=== PATIENT | female | born 1985 | race Caucasian/White ===

== ENCOUNTER → 2021-01-30 09:13 | Outpatient (CLI) | payer OTHER, MEDICAID, SELFPAY ==
[2021-01-30 13:01] LABS: Appearance Urine UA CLEAR; Bilirubin Urine UA NEGATIVE (NEGATIVE); Color Urine UA YELLOW; Glucose Urine UA TRACE g/dL (Negative); Ketones Urine UA NEGATIVE (NEGATIVE); Leukocyte Esterase Urine UA NEGATIVE (NEGATIVE); Nitrite Urine UA NEGATIVE (Negative); Occult Blood Urine UA NEGATIVE (Negative); Protein Urine UA NEGATIVE (Negative); Urobilinogen Urine UA 0.2 E.U./dL (0.2)
[2021-01-30 13:04] LABS: UR Morphine/Opiate cutoff 300 Negative (Negative); Ur Creatinine Normal (Normal); Ur Specific Gravity Normal (Normal); Urine Amphetamines Negative (Negative); Urine Barbiturates Negative (Negative); Urine Benzodiazepines Negative (Negative); Urine Cocaine Negative (Negative); Urine MDMA Negative (Negative); Urine Methadone Negative (Negative); Urine Methamphetamines Negative (Negative); Urine Oxycodone Negative (Negative); Urine Phencyclidine Negative (Negative); Urine Tetrahydrocannabinol Negative (Negative); Urine Tricyclic Antidepressant Negative (Negative); Urine pH Normal (Normal); pH Urine UA 6.5 (4.5-8.0)
[2021-01-31 08:30] LABS: Strep Grp B PCR NEG for Grp B Strep
== END ==
PROVIDERS: Visit Provider Family Medicine
DX: Z34.03 Encounter for supervision of normal first pregnancy, third trimester (principal); Z3A.36 36 weeks gestation of pregnancy
CPT/HCPCS: 80305; 81003; 87086; 87653

== ENCOUNTER → 2021-01-31 14:56 | Outpatient (CLI) | payer OTHER, MEDICAID, SELFPAY ==
--- NOTE | 2021-01-31 15:10 | DI.US.S_ITS ---
PROCEDURE: US OB >= 14 WEEKS FETUS INDICATIONS: LATE ANATOMY OUTSIDE/PRIOR DATING DATA: First dating scan (date and location): 01/31/2021 . Estimated date of delivery (VEDA) from first dating scan: 03/06/2021 . TECHNIQUE: Real-time scanning was performed of the fetus, with image documentation and biometric measurements. Endovaginal scanning: No COMPARISON: None. FINDINGS: General: A single living intrauterine gestation is present. Presentation: Breech. Placenta: Placental position is anterior , without previa. Amniotic fluid index: 12.4 cm, normal range is 5-24 cm. heart rate: 128 beats per minute. Maternal cervical canal: 2.7 cm long. Normal lower limit is 2.5 cm. biometrics: Biparietal diameter: 34 weeks 6 days Head circumference: 34 weeks 6 days Abdominal circumference: 36 weeks 6 days Femur length: 34 weeks 1 day Estimated gestational age from initial scan: not applicable. Composite gestational age from present scan: 35 weeks 1 day Estimated weight and percentile: 2750 g Measurement variability for biometric dating: +/- 7 days from 14 weeks to 15 weeks 6 days gestation, +/- 10 days from 16 weeks to 21 weeks 6 days gestation, +/- 2 weeks from 22 weeks to 27 weeks 6 days gestation, +/- 3 weeks for 28 weeks gestation or later. weight reference: 4500 g or EFW >90/95% is considered macrosomia or large for gestational age. EFW <10% is small for gestational age. EFW 5% or less is considered intra-uterine growth restriction. Limited anatomic survey secondary to advanced gestational age. No gross abnormality seen. IMPRESSION: 1. Single living IUP with composite age of 35 weeks 1 day corresponding to ultrasound VEDA of 03/06/2021. 2. Limited anatomic survey secondary to advanced gestational age. Dictated by: Arjun Davenport [facility] Interpreted: Evan Garzon MD on 01/31/2021 at 16:56 Transcribed by: KEYUR on 01/31/2021 at 16:59 Approved by: Oumar Garzon M.D. on 02/04/2021 at 9:38
== END ==
PROVIDERS: Referring Provider Family Medicine; Visit Provider Family Medicine
DX: Z34.03 Encounter for supervision of normal first pregnancy, third trimester (principal); Z3A.35 35 weeks gestation of pregnancy
CPT/HCPCS: 76811

== ENCOUNTER → 2021-02-08 11:48 | Outpatient (CLI) | payer OTHER, MEDICAID, SELFPAY ==
[2021-02-08 12:37] LABS: Add Manual Diff / Slide Review NO; Basophils Absolute Auto 0 /uL (0-100); Basophils Percent Auto 0.2 % (0-2); Eosinophils Absolute Auto 100 /uL (0-450); Eosinophils Percent Auto 1.2 % (2-4); Hematocrit 36.9 % (36-46); Hemoglobin 12.8 g/dL (12.0-16.0); Lymphocytes Absolute Auto 1400 /uL (1100-4500); Lymphocytes Percent Auto 15.6 % (25-40); Mean Corpuscular HGB Conc 34.6 % (30-36); Mean Corpuscular Hemoglobin 31.1 PG (26-34); Mean Corpuscular Volume 89.9 fL (80-100); Monocytes Absolute Auto 700 /uL (0-900); Monocytes Percent Auto 7.4 % (3-14); Neutrophils Absolute Auto 6800 /uL (1500-7000); Neutrophils Percent Auto 75.6 % (50-75); Platelet Count 141 X10^3/uL (150-400); Red Cell Distribution Width 12.6 % (11.6-14.8)
[2021-02-08 12:51] LABS: Hemoglobin A1C% w Est Avg Glu 4.7 % (4.0-6.0)
[2021-02-08 13:21] LABS: Glucose 99 mg/dL (70-100)
[2021-02-09 08:43] LABS: RPR Screen Non Reactive (Non Reactive)
[2021-02-09 10:09] LABS: Varicella IgG Antibody 981 index (Immune >165)
[2021-02-12 15:03] LABS: Hepatitis B Surface Antigen NEGATIVE s/c (NEGATIVE)
[2021-02-12 15:20] LABS: HIV 1 & 2 Ab/Ag 4th Gen Combo NEGATIVE (NEGATIVE); Hep C Virus Ab w/Reflex Quant REACTIVE s/c (NEGATIVE)
[2021-02-13 18:16] LABS: Rubella Antibody IgG 34.3 IU/mL (>15)
[2021-02-15 19:13] LABS: HCV Genotype 1a (.); HCV LOG 10 5.781 (.)
== END ==
PROVIDERS: Referring Provider Family Medicine; Visit Provider Family Medicine
DX: Z34.03 Encounter for supervision of normal first pregnancy, third trimester (principal)
CPT/HCPCS: 36415; 80055; 82947; 83036; 86787; 86803; 86850; 86900; 86901; 87389; 87522

== ENCOUNTER → 2021-02-15 11:25 | Outpatient (CLI) | payer OTHER, MEDICAID, SELFPAY | PROVIDERS: PCP Family Medicine; Referring Provider Family Medicine; Visit Provider Family Medicine | DX: Z34.90 Encounter for supervision of normal pregnancy, unspecified, unspecified trimester (principal) | CPT/HCPCS: 36415; 86850; 86900; 86901 ==

== ENCOUNTER 2021-03-01 10:29 | Outpatient (CLI) | payer OTHER, MEDICAID, SELFPAY | END 2021-03-01 11:05 | disposition home or self-care (01) | LOC: LABOR 11:15 → OB 03-06 07:15 | PROVIDERS: PCP Family Medicine; Referring Provider Family Medicine; Visit Provider Family Medicine | DX: O48.0 Post-term pregnancy (principal); Z3A.41 41 weeks gestation of pregnancy | CPT/HCPCS: 59025; 76815; G0378; G0379 ==

== ENCOUNTER 2021-03-06 02:54 | Outpatient (CLI) | payer OTHER, MEDICAID, SELFPAY ==
[2021-03-06] MEDS: hydrOXYzine 50 MG/ML INJ 25 MG IM (04:08)
[2021-03-06] MEDS: MORPHINE 10 MG/ML INJ IM (04:09)
== END 2021-03-06 04:18 | disposition home or self-care (01) ==
LOC: LABOR 03:03 → OB 11:32
PROVIDERS: PCP Family Medicine; Referring Provider Family Medicine; Visit Provider Family Medicine
DX: O48.0 Post-term pregnancy (principal); Z3A.41 41 weeks gestation of pregnancy
CPT/HCPCS: 59025; 96372; G0378; G0379; J2270; J3410

== ENCOUNTER 2021-03-06 07:24 | Inpatient (IN) | payer OTHER, MEDICAID, SELFPAY ==
[2021-03-06 09:02] LABS: Add Manual Diff / Slide Review NO; Basophils Absolute Auto 0 /uL (0-100); Basophils Percent Auto 0.3 % (0-2); Eosinophils Absolute Auto 0 /uL (0-450); Eosinophils Percent Auto 0.1 % (2-4); Hematocrit 39.1 % (36-46); Hemoglobin 13.2 g/dL (12.0-16.0); Lymphocytes Absolute Auto 1400 /uL (1100-4500); Lymphocytes Percent Auto 11.4 % (25-40); Mean Corpuscular HGB Conc 33.7 % (30-36); Mean Corpuscular Volume 88.8 fL (80-100); Monocytes Absolute Auto 700 /uL (0-900); Monocytes Percent Auto 5.3 % (3-14); Neutrophils Absolute Auto 10500 /uL (1500-7000); Neutrophils Percent Auto 82.9 % (50-75); Platelet Count 143 X10^3/uL (150-400); Red Blood Cell Count 4.41 X10^6/uL (4.0-5.2); Red Cell Distribution Width 12.7 % (11.6-14.8); White Blood Cell Count 12.6 X10^3/uL (4.5-11.0)
--- NOTE | 2021-03-06 09:27 | P.HPOB_ITS ---
OB HPI Date/Time Date of admission: 03/06/21 Date Patient Seen: 03/06/21 Time Patient Seen: 08:10 History of Present Condition Chief complaint: OBS : 3 Para: 0 Estimated Date of Delivery: 02/27/21 Estimated Gestational Age (weeks): 41w0d Narrative: Sylvia Flaherty is a 35 year old at 41w0d who presented with regular contractions. Pt reports contractions started around 2am, increasing in frequency and intensity since then. Mild vaginal bleeding, no LOF. She is feeling her baby move regularly. The pts was complicated by very limited care. She was unaware she was until the 3rd trimester. The pt does have a hx of manic depression and was on Abilify and Wellbutrin, which were stopped when she found out she was . Her mood has been stable since then. She was smo jose alfredo cigarettes until October, and has not smoked since then. The pt did test positive for Hepatitis C with an elevated quant. She was unaware she was Hepatitis C positive prior to her . This was discovered too late for her to see [facility] or any specialist regarding it. The pt does have a hx of IV drug use, but has been sober for 9 years, and had a negative urine tox at her intake appointment. The pt was found to be breech at her 37wk appt, and declined version. She was transverse at her 39wk appt. The day of her scheduled , on 03/01, she was found to be vertex and has remained as such since then. History of Present care: limited care, initiated at week # (30) and pounds weight gain (6) Dating criteria: based on 3rd trimester US only Ultrasounds: other (normal 3rd trimester anatomy ultrasound) Obstetrical complications: none Preadmission Labs Blood type: A (-) negative -: Antibody screen: negative, GBS status: negative, HBsAG: negative, HIV: ne gative and RPR/VDLR: negative -: Rubella: immune and Varicella: immune HCT: 36.9 HCAB: reactive PAP: Abnormal (LGSIL - needs repeat at 6wk appt) Urine: Negative Narrative: A1C 4.7 Prior (ies) History: Two elective abortions at unknown dates Evaluation Evaluation Baseline heart rate: 120 Variability: Moderate (11-25) monitor accelerations: Present Monitor Decelerations: Absent Contraction Frequency (minutes): 3 Uterine Contraction Intensity: Strong/Firm Status: Category l Cervical dilation (cm): 4 Cervical effacement (%): 95 station: 0 PFSH Medical History (Updated 02/22/21 @ 15:59 by Sindy Mohan MD) Bipolar 1 disorder H/O 2 abortions Hepatitis C, acute History of being hospitalized (~2010) History of manic depressive disorder LGSIL (low grade squamous intraepithelial dysplasia) MRSA (methicillin resistant staph aureus) culture positive (~2010) Obesity Ovarian cyst (~2001) Surgical History (Updated 01/30/21 @ 16:52 by Loretta Mace, [place]) History of dilation and curettage History of dilation and curettage History of ovarian cystectomy (~2001) S/P laparoscopic cholecystectomy (~2003) Status post surgery (~2010) [place] teeth extracted (~2007) Family History (Updated 01/30/21 @ 17:50 by Loretta Mace RN) Mother Diabetes mellitus Hypertension Altered cardiac tissue perfusion Grandmother Cancer Colon cancer Family/Other Cancer Breast cancer Father Depression Hyperlipidemia Bipolar disorder with severe nik Grandfather Myocardial infarction Grandmother Depression Suicide Bipolar disorder with severe nik Social History marital status: unmarried,living together (Wedding planned for January 2022) number of children: 0 household members: significant other occupational status: employed ([employer]) Smoking Status: Former smoker (Recent tobacco cessation) quit status: quit date established (Quit 10/2020) second hand exposure: No alcohol intake: former (pre- : 1/week) substance use type: former substance user (Stopped 9 years ago) and heroin Meds Home Medications and Allergies Home Medications Medication Instructions Recorded Confirmed Type aripiprazole 15 mg tablet (Abilify) 15 mg PO DAILY 01/30/21 01/30/21 History prenat.vits,darren,[id number] 1 tab PO DAILY 01/30/21 01/30/21 History Allergies Allergy/AdvReac Type Severity Reaction Status Date / Time No Known Drug Allergies Allergy Verified 03/06/21 03:58 Exam Const General: cooperative, healthy appearing and comfortable Orientation: alert, awake and oriented x3 Resp Effort & Inspection: normal respiratory effort Auscultation: clear to auscultation bilaterally Cardio Rate: regular rate Rhythm: regular rhythm Heart Sounds: S1 normal, S2 normal and no murmurs GI Inspection: non-distended Palpation: soft and No tender Other: gravid Presentation: vertex Extrem General: no clubbing, cyanosis or edema Objective Labs Result Diagrams: 03/06/21 08:10 Labs: Laboratory Results - last 24 hr 03/06/21 08:10 WBC 12.6 H RBC 4.41 Hgb 13.2 Hct 39.1 MCV 88.8 MCH 30.0 MCHC 33.7 RDW 12.7 Plt Count 143 L Neut % (Auto) 82.9 H Lymph % (Auto) 11.4 L [place] % (Auto) 5.3 Eos % (Auto) 0.1 L Baso % (Auto) 0.3 Neut # (Auto) 18942 H Lymph # (Auto) 1400 [place] # (Auto) 700 Eos # (Auto) 0 Baso # (Auto) 0 Assessment and Plan Assessment and Plan Assessment and Plan narrative: 35yo at 41w0d based on 3rd trimester ultrasound here in active labor. GBS negative, Rh negative (received Rhogam 02/15/21). complicated by limited OB care, Hepatitis C positive with elevated quant, manic depression now off medications but previously on Abilify and Wellbutrin, and tobacco use - no longer using. - Expectant management, anticipate - Minimize risk of maternal- blood transmission, avoid scalp electrode, early AROM, etc - FHT reassuring - GBS negative, no prophylaxis indicated - Epidural for pain control
[2021-03-06 10:00] LABS: COVID19 - ADMIT (NP swab/PCR) Negative (Negative)
[2021-03-06] MEDS: LACTATED RINGERS 1,000 ML 100 ML IV ×2 (10:00→10:53)
[2021-03-06] MEDS: OXYTOCIN PREMIX 30 UNIT/500 ML PLAST..BAG IV (12:51)
--- NOTE | 2021-03-06 13:51 | PM.OBPRVD ---
Labor & Delivery Delivery date: 03/06/21 Intrapartal Events: None Cervical ripening method: none Induction method: none Delivery monitor: external FHT Route of delivery: Episiotomy description: None L&D Laceration Description: Perineal - 1st Degree and Labial Delivery repair: chromic Estimated blood loss (mL): 100 Anesthesia Type: Epidural Complications: None Narrative: PROCEDURE: at 41w0d presented in active labor and was admitted to Labor and Delivery. The patient progressed through the 1st stage over 6.5 hours. Pain was controlled with an epidural. The patient progressed through the 2nd stage over 2.5 hours and delivered a viable female with APGARs 9/9 at 12:57 via without complications. The cord was cut and clamped after it stopped pulsating. With active management of the 3rd stage of labor, and gentle cord traction, the umbilical cord avulsed. The placenta was then manually extracted, which was located near to the cervical os and had already detached. The perineum and vagina were inspected with 1st degree labial laceration and right labial laceration repaired with 3-O Chromic. Left labial laceration was hemostatic and not repaired. PREPROCEDURE DIAGNOSIS: Intrauterine at 41w0d GBS negative RH negative Acute hepatitis C Tobacco use during Manic depression Limited care POSTPROCEDURE DIAGNOSIS: Intrauterine at 41w0d, delivered Same as preprocedure Windsor Baby 1: gender: Female Presentation: vertex Position: Left Occiput Anterior Placenta delivery description: Manual Removal Cord Vessel Description: 3 Vessels score (1 min): 9 score (5 min): 9 weight: 7 lb 7.261 oz Plan for aftercare: Routine care (send cord blood for Rh status)
[2021-03-06 14:35] VITALS: BP 120/56
[2021-03-06] MEDS: ACETAMINOPHEN 325 MG TABLET 650 MG PO (20:15)
[2021-03-06] MEDS: IBUPROFEN 600 MG TABLET PO (20:16)
[2021-03-07] MEDS: ACETAMINOPHEN 325 MG TABLET 650 MG PO (03:51)
[2021-03-07] MEDS: IBUPROFEN 600 MG TABLET PO ×2 (03:51→10:17)
[2021-03-07] MEDS: LANOLIN OINT 7 GM 1 APPLIC TOP (03:52)
--- NOTE | 2021-03-07 08:12 | P.DS_ITS ---
Discharge Providers Provider Date of admission: 03/06/21 07:24 Discharge Date: 03/07/21 Primary care physician: Sindy Mohan MD Consults: 03/07/21 13:52 Consult to Stenciler Routine Comment: Discharge provider: Barbara Hu DO Summary Hospital Course Date Patient Seen: 03/07/21 Time Patient Seen: 07:45 Diagnoses: Intrauterine at 41w0d GBS negative RH negative Acute hepatitis C Tobacco use during Manic depression Limited care Hospital Course: Patient is a 35-year-old G3 now P1 after uncomplicated spontaneous vaginal delivery at 41 weeks. She arrived in active labor and went on to recei ve an epidural. Labor progressed well and she delivered a vigorous female infant. First-degree lacerations were repaired. course has been uncomplicated. Patient is ambulating, voiding and passing flatus. Tolerating a diet. Vaginal bleeding is heavier than a period but still well controlled. Pain controlled with ibuprofen and Tylenol. Breast-feeding going well without issues in the . Advised patient to call for fevers, severe pain or bleeding through more than a pad an hour. She will follow-up in clinic in 6 weeks. Peripartum Data Infant Delivery Method: Natural Vaginal complications: none [place] 1: Gender: Female Disposition of : home Status at Discharge Cognitive/behavioral status at discharge: at baseline, oriented Functional status at discharge: independent ambulation Overall status at discharge: patient is progressing back to baseline Time Spent with Patient Time attestation: Total time spent providing and/or coordinating discharge services: [address] [place] [address] Objective Labs Result Diagrams: 03/06/21 08:10 Labs: Laboratory Results - last 24 hr 03/06/21 03/06/21 03/06/21 08:10 08:10 08:10 WBC 12.6 H RBC 4.41 Hgb 13.2 Hct 39.1 MCV 88.8 MCH 30.0 MCHC 33.7 RDW 12.7 Plt Count 143 L Neut % (Auto) 82.9 H Lymph % (Auto) 11.4 L [place] % (Auto) 5.3 Eos % (Auto) 0.1 L Baso % (Auto) 0.3 Neut # (Auto) 68984 H Lymph # (Auto) 1400 [place] # (Auto) 700 Eos # (Auto) 0 Baso # (Auto) 0 SARS-CoV-2 (PCR) Negative Blood Type A Negative Antibody Screen Positive Antibody Identification Anti-D Maternal Bleed 03/07/21 06:43 WBC RBC Hgb Hct MCV MCH MCHC RDW Plt Count Neut % (Auto) Lymph % (Auto) [place] % (Auto) Eos % (Auto) Baso % (Auto) Neut # (Auto) Lymph # (Auto) [place] # (Auto) Eos # (Auto) Baso # (Auto) SARS-CoV-2 (PCR) Blood Type Antibody Screen Antibody Identification Maternal Bleed Negative Exam Vital Signs (past 8 hours): Temperature 96.7? blood pressure 125/68 heart rate 74 respirations 18 Narrative Exam Narrative: General: Awake and alert, no acute distress. HEENT: NCAT, EOMI, moist oral mucosa CV: Regular rate and rhythm, no murmurs, rubs or gallops Lungs: CTAB, no wheezes, rales, or rhonchi Abdomen: Soft, nontender; bowel tones active; uterus firm 1 cm below umbilicus Extremities: Warm, no edema Discharge Plan Discharge Plan Patient Disposition: Home Discharge orders & Medications Prescriptions: New docusate sodium 100 mg Capsule 100 mg PO DAILY Qty: 30 RF: 0 ibuprofen 600 mg Tablet 600 mg PO Q6HR PRN (Reason: Pain, Mild (1-3)) Qty: 30 RF: 0 Continued prenat.vits,darren,[id number] Tablet 1 tab PO DAILY RF: 0 Discontinued aripiprazole [Abilify] 15 mg tablet 15 mg PO DAILY RF: 0 Follow up/Referrals: Sindy Mohan MD [Primary Care Provider] - 6 Weeks Visit Report/Discharge Packet Visit Report Forms: Patient Portal/API, Stroke Signs & Symptoms Discharge Data Primary Care Provider: Sindy Mohan
[2021-03-07] MEDS: PRENATAL VIT,CALC/IRON/FOLIC 1 TABLET 1 TAB PO (09:05)
[2021-03-07] MEDS: DOCUSATE 100 MG CAPSULE PO (09:05)
[2021-03-07] MEDS: RHO(D) IMMUNE GLOBULIN 1,500 UNIT SYRINGE 1500 UNIT IM (10:15)
[2021-03-07 13:01] VITALS: BP 128/83; PULSE 55; RESP 16; TEMP 36.3
== END 2021-03-07 14:08 | disposition home or self-care (01) | DRG 560 ==
PROVIDERS: Admitting Provider Family Medicine; PCP Family Medicine; Referring Provider Family Medicine; Visit Provider Family Medicine
DX: O48.0 Post-term pregnancy (principal); Z3A.41 41 weeks gestation of pregnancy; Z37.0 Single live birth; O77.0 Labor and delivery complicated by meconium in amniotic fluid; O98.42 Viral hepatitis complicating childbirth; B19.20 Unspecified viral hepatitis C without hepatic coma; O70.0 First degree perineal laceration during delivery; O99.891 Other specified diseases and conditions complicating pregnancy; F33.9 Major depressive disorder, recurrent, unspecified; Z20.822 Contact with and (suspected) exposure to COVID-19
CPT/HCPCS: 01967; 36415; 59025; 59050; 59409; 85025; 85461; 86850; 86870; 86900; 86901; 87635; 96372; C9803; G0379; J2270; J2590; J2790; J3410

== ENCOUNTER → 2021-04-26 11:18 | Outpatient (CLI) | payer OTHER, MEDICAID, SELFPAY ==
[2021-04-26 14:13] LABS: COVID19 -Nasal RAPID Negative (Negative)
== END ==
PROVIDERS: PCP Family Medicine; Visit Provider Physician Assistant
DX: Z20.822 Contact with and (suspected) exposure to COVID-19 (principal); R09.81 Nasal congestion; R05.9 Cough, unspecified
CPT/HCPCS: 87635